=== PATIENT | female | born 1995 | race Caucasian/White ===

== ENCOUNTER 2017-01-11 09:48 | Emergency (ER) | payer OTHER ==
[~2017-01-11] VITALS: Ht 147.3 cm; Wt 49.0 kg
[~2017-01-11 09:48] MED LIST: ABILIFY10 MG PO; ABILIFY2 MG PO; ABILIFY30 MG PO; ACID REDUCER75 MG PO; ADDERALL XR 2020 MG PO; BENZAMYCIN GE46.6 GM TP; CLONAZEPAM0.5 MG PO; CLONIDINE HCL0.1 MG PO; DELTASONE20 M1 PO; DELZICOL400 MG PO; DEPO-PROVER150 MG/ML IM; ENDOCET 5-3251 EACH PO; KLONOPIN0.5 M1 PO; OCEAN NASAL 0.645 ML BOTH NARES; PREDNISONE10 MG PO; TRILEPTAL300 MG PO; TRILEPTAL600 MG PO; TYLENOL REGULA325 MG PO; TYLENOL WITH C1 EACH PO; VYVANSE60 MG PO; VYVANSE70 MG PO; ZANTAC75 MG PO; ZOFRAN ODT8 MG PO; ZOFRAN4 MG PO; ZOLOFT100 M1 PO; ZOLOFT50 M1 PO
[2017-01-11 10:23] LABS: HEMATOCRIT 38.3 % (36.0-46.0); MCH 30.4 PG (29.0-34.0); MCHC 33.9 G/DL (30.0-36.0); MCV 89.7 FL (83-99); MEAN PLAT.VOLUME 10.5 uM^3 (9.5-12.4); PLATELET COUNT 233 K/uL (156-360); RBC DIS.WIDTH-CV 13.6 % (11.8-14.6); RBC DIS.WIDTH-SD 43.9 % (39-53); RED BLOOD COUNT 4.27 M/uL (3.80-5.20); WHITE BLOOD COUNT 8.5 K/uL (4.1-10.2)
[2017-01-11 10:31] LABS: CHLORIDE 109 mEq/L (99-109); POTASSIUM 3.8 mEq/L (3.7-5.4); SODIUM 141 mEq/L (136-147)
[2017-01-11 10:32] LABS: GLUCOSE 126 mg/dL (70-99)
[2017-01-11 10:34] LABS: ANION GAP 10 MEQ/L (2-14)
[2017-01-11 10:36] LABS: GFR ESTIMATE (CALCULATED) > 59 mL/min/
[2017-01-11 10:37] LABS: UREA NITROGEN (BUN) 11 mg/dL (9-23)
[2017-01-11 11:19] LABS: TOTAL BILIRUBIN 0.2 mg/dL (0.0-1.0)
[2017-01-11 11:20] LABS: ALKALINE PHOSPHATASE 79 IU/L (3-129)
[2017-01-11 11:23] LABS: DIRECT BILIRUBIN 0.1 mg/dL (0.0-0.3)
[2017-01-11 11:24] LABS: LIPASE 16 U/L (1.0-51.0)
[2017-01-11 11:30] LABS: QUANTITATIVE HCG < 4.0 MIU/ML
[2017-01-11] MEDS ORDERED: MEDROL DOSEPAK4 MG PO (13:30)
[2017-01-11 13:49] VITALS: BP 116/65
[2017-01-12 12:53] LABS: POC NON-PRINT COM 1 ND
== END 2017-01-11 13:50 | disposition home or self-care (01) ==
LOC: EME 09:48
PROVIDERS: Nurse Practitioner Family
DX: K51.90 Ulcerative colitis, unspecified, without complications (principal); K92.1 Melena; R00.0 Tachycardia, unspecified; F70 Mild intellectual disabilities
CPT/HCPCS: 74177; 80048; 80076; 82272; 83690; 84702; 85027; 86850; 86900; 86901; 86920; 87493; 87506; 99281; 99284; J7040

== ENCOUNTER 2017-06-07 20:19 | Emergency (ER) | payer OTHER ==
[~2017-06-07] VITALS: Ht 160 cm; Wt 53.6 kg
[~2017-06-07 20:19] MED LIST changes: +MEDROL DOSEPAK4 MG PO
[2017-06-07 23:22] LABS: BASOPHIL COUNT 0.1 K/uL (0-0.1); EOSINOPHIL (%) 1.1 % (0-5); EOSINOPHIL COUNT 0.2 K/uL (0-0.3); HEMATOCRIT 34.7 % (36.0-46.0); IMMATURE GRANULOCYTE (%) 0.3 % (0.0-0.7); LYMPHOCYTE COUNT 2.1 K/uL (1.0-2.8); MCH 29.6 PG (29.0-34.0); MCHC 32.9 G/DL (30.0-36.0); MCV 90.1 FL (83-99); MONOCYTE (%) 5.9 % (3-12); MONOCYTE COUNT 0.8 K/uL (0-0.8); PLATELET COUNT 258 K/uL (156-360); RBC DIS.WIDTH-CV 12.6 % (11.8-14.6); RBC DIS.WIDTH-SD 41.5 % (39-53); RED BLOOD COUNT 3.85 M/uL (3.80-5.20); WHITE BLOOD COUNT 13.1 K/uL (4.1-10.2)
[2017-06-07 23:29] LABS: CHLORIDE 102 mEq/L (99-109); POTASSIUM 3.7 mEq/L (3.7-5.4); SODIUM 136 mEq/L (136-147)
[2017-06-07 23:33] LABS: ANION GAP 11 MEQ/L (2-14)
[2017-06-07 23:34] LABS: SERUM ETHYL ALCOHOL < 10 mg/dL
[2017-06-07 23:35] LABS: GFR ESTIMATE (CALCULATED) > 59 mL/min/
[2017-06-07 23:37] LABS: UREA NITROGEN (BUN) 15 mg/dL (9-23)
[2017-06-07 23:38] LABS: SALICYLATE < 5.0 MG/DL (15-30)
[2017-06-08] MEDS ORDERED: ACZONE60 G1 TP (00:03)
[2017-06-08] MEDS ORDERED: CLONIDINE HCL0.2 MG PO (00:04)
[2017-06-08] MEDS ORDERED: LIALDA1.2 GM PO (00:05)
[2017-06-08] MEDS ORDERED: TRAZODONE HCL50 MG PO (00:06)
[2017-06-08] MEDS ORDERED: VYVANSE30 MG PO (00:06)
[2017-06-08] MEDS ORDERED: GEODON40 MG PO (00:07)
[2017-06-08] MEDS ORDERED: TRILEPTAL300 MG PO (00:07)
[2017-06-08] MEDS ORDERED: EPIDUO FORTE 0.45 GM TP (00:08)
[2017-06-08] MEDS ORDERED: ROBITUSSIN DM118 ML PO (00:09)
[2017-06-08] MEDS ORDERED: ZOFRAN4 MG PO (00:09)
[2017-06-08] MEDS ORDERED: PERIGUARD TP (00:09)
[2017-06-08 01:02] LABS: GLUCOSE 98 mg/dL (70-99)
[2017-06-08 06:24] LABS: INTERNAL CONTROL VALID? YES
[2017-06-08 06:36] LABS: AMPHETAMINE PRESUMPTIVE POSITIVE (500 ng/mL); COCAINE NEGATIVE (150 ng/mL); METHAMPHETAMINE NEGATIVE (500 ng/mL); OPIATES (MORPHINE) NEGATIVE (100 ng/mL); PHENCYCLIDINE NEGATIVE (25 ng/mL); THC CANNABINOIDS NEGATIVE (50 ng/mL)
[2017-06-08 06:37] LABS: ADD MEDTOX COMMENT Y; BARBITURATES NEGATIVE (200 ng/mL); BENZODIAZEPINES NEGATIVE (150 ng/mL); INTERNAL CONTROLS VALID? YES; METHADONE NEGATIVE (200 ng/mL); OXYCODONE NEGATIVE (100 ng/mL); PROPOXYPHENE NEGATIVE (300 ng/mL); TRICYCLIC ANTIDEPRESSANTS NEGATIVE (300 ng/mL)
[2017-06-08 07:00] VITALS: BP 120/70
== END 2017-06-08 09:33 | disposition home or self-care (01) ==
LOC: EME → EDBD 20:19 → EME 06-08 09:33
PROVIDERS: Emergency Medicine
DX: F60.3 Borderline personality disorder (principal); F43.20 Adjustment disorder, unspecified; F71 Moderate intellectual disabilities; F33.1 Major depressive disorder, recurrent, moderate; F90.9 Attention-deficit hyperactivity disorder, unspecified type; F41.9 Anxiety disorder, unspecified; F63.81 Intermittent explosive disorder
CPT/HCPCS: 80048; 84703; 84999; 85025; 87651 90; 90839; 99281; 99285; G0480

== ENCOUNTER 2017-08-17 05:07 | Day surgery (SDC) | payer OTHER ==
[~2017-08-17] VITALS: Ht 142.2 cm; Wt 52.1 kg
[~2017-08-17 05:07] MED LIST changes: +ACZONE60 G1 TP; +CLONIDINE HCL0.2 MG PO; +EPIDUO FORTE 0.45 GM TP; +GEODON40 MG PO; +INDERAL20 MG PO; +LIALDA1.2 GM PO; +PERIGUARD TP; +ROBITUSSIN DM118 ML PO; +TRAZODONE HCL50 MG PO; +VYVANSE30 MG PO
[2017-08-17 05:56] VITALS: BP 139/76
[2017-08-17 09:11] VITALS: BP 112/71
== END 2017-08-17 09:40 | disposition home or self-care (01) ==
LOC: SDC 05:07
PROC: 0U2DXHZ Change Contraceptive Device in Uterus and Cervix, External Approach (ICD-10-PCS; principal; 2017-08-17)
DX: Z30.433 Encounter for removal and reinsertion of intrauterine contraceptive device (principal); N92.1 Excessive and frequent menstruation with irregular cycle; F70 Mild intellectual disabilities; R45.1 Restlessness and agitation; F84.0 Autistic disorder; F41.9 Anxiety disorder, unspecified; L73.9 Follicular disorder, unspecified; K51.90 Ulcerative colitis, unspecified, without complications; Z87.440 Personal history of urinary (tract) infections
CPT/HCPCS: J0131; J1170; J1885; J2250; J3010